=== PATIENT | male | born 1935 | race Caucasian/White ===

== ENCOUNTER 2017-11-09 12:22 | Inpatient (IN) | payer MEDICARE, OTHER ==
[~2017-11-09 12:22] MED LIST: CEFAZOLIN 1 GM INJ; EPHEDrine SULFATE 50 MG/5 ML SYG; ROCURONIUM 50 MG INJ
[2017-11-09] MEDS: hydrALAzine 20 MG INJ IV (13:17)
[2017-11-09 13:34] LABS: ADD MAN DIFF? NO
[2017-11-09 13:36] LABS: WHITE BLOOD COUNT 6.5 10^3/ul (4.8-10.8)
[2017-11-09 13:36] LABS: BASOPHILS % 0.6 % (0.0-2.0); EOSINOPHILS # 0.1 10^3/ul (0.0-0.5); EOSINOPHILS % 1.8 % (0.0-7.0); HEMATOCRIT 42.5 % (42.0-52.0); LYMPHOCYTES # 1.7 10^3/ul (0.8-2.9); LYMPHOCYTES % 26.7 % (15.0-51.0); MEAN CORPUSCULAR HEMOGLOBIN 29.2 pg (29.0-33.0); MEAN CORPUSCULAR HGB CONC 32.9 g/dl (32.0-37.0); MEAN CORPUSCULAR VOLUME 88.7 fl (82.0-101.0); MEAN PLATELET VOLUME 10.7 fl (7.4-10.4); MONOCYTE # 0.6 10^3/ul (0.3-0.9); MONOCYTES % 9.2 % (0.0-11.0); NEUTROPHILS % 61.4 % (39.0-77.0); PLATELET COUNT 191 10^3/UL (140-415); RED BLOOD COUNT 4.79 10^6/ul (4.70-6.10); RED CELL DISTRIBUTION WIDTH 13.4 % (11.5-14.5)
[2017-11-09 13:54] LABS: INR 0.98; PROTIME 13.1 Sec (11.9-14.9)
[2017-11-09 13:55] LABS: PARTIAL THROMBOPLASTIN TIME 25.8 Sec (25.0-35.0)
[2017-11-09 13:56] LABS: ANION GAP 14 (8-16); CARBON DIOXIDE 29 mmol/L (21-31); CHLORIDE 104 mmol/L (97-110); GLUCOSE 102 mg/dl (70-220)
[2017-11-09 14:02] LABS: BLOOD UREA NITROGEN 14 mg/dl (7-20); CALCIUM 9.7 mg/dl (8.4-10.2); CREATININE 0.89 mg/dl (0.61-1.24); POTASSIUM 4.2 mmol/L (3.5-5.1); SODIUM 143 mmol/L (135-144)
[2017-11-09] MEDS ORDERED: HEPARIN 1000 UNITS/ML 10 ML INJ ×2 (15:00→16:17)
[2017-11-09] MEDS ORDERED: GELATIN SIZE 100 SPONGE (15:01)
[2017-11-09] MEDS ORDERED: LIDOCAINE 1% (MPF) 30 ML INJ (15:01)
[2017-11-09] MEDS ORDERED: THROMBIN 5000 UNIT VIAL (15:02)
[2017-11-09] MEDS ORDERED: IOHEXOL 300MG/ML 30 ML BTL (15:02)
[2017-11-09] MEDS ORDERED: ROCURONIUM 50 MG INJ (15:29)
[2017-11-09] MEDS ORDERED: FENTAnyl 50 MCG/ML VIAL (15:29)
[2017-11-09] MEDS ORDERED: ETOMIDATE 20 MG INJ (15:29)
[2017-11-09] MEDS ORDERED: hydrALAzine 20 MG INJ (15:58)
[2017-11-09] MEDS ORDERED: METOPROLOL 5 MG INJ (15:58)
[2017-11-09] MEDS ORDERED: PHENYLephrine (100 MCG/ML) 5ML SYG ×3 (16:06→17:23)
[2017-11-09] MEDS ORDERED: METOCLOPRAMIDE 10 MG INJ (16:18)
[2017-11-09] MEDS ORDERED: DEXAMETHASONE 4 MG/ML 1 ML INJ (16:18)
[2017-11-09] MEDS ORDERED: ONDANSETRON 4 MG INJ (16:18)
[2017-11-09] MEDS: LIDOCAINE 1% (MPF) 30 ML INJ INJ (16:40)
[2017-11-09] MEDS: HEPARIN 10,000 UNITS/ML 1 ML INJ IRR (16:51)
[2017-11-09] MEDS: SODIUM CHLORIDE 0.9% 1L BAG IV (16:53)
[2017-11-09] MEDS ORDERED: SUGAMMADEX SODIUM 200 MG/2 ML VIAL IV (17:31)
[2017-11-09] MEDS ORDERED: ESMOLOL 10 ML (17:46)
[2017-11-09] MEDS: SOD CHLORIDE 0.9% 1,000 ML IV (20:58)
[2017-11-09] MEDS: ATORVASTATIN 10 MG TAB PO (20:58)
[2017-11-09] MEDS: AMLODIPINE 5 MG TAB PO (20:58)
[2017-11-10] MEDS: SOD CHLORIDE 0.9% 1,000 ML IV (02:42)
[2017-11-10 07:16] LABS: ADD MAN DIFF? NO
[2017-11-10 07:19] LABS: WHITE BLOOD COUNT 11.1 10^3/ul (4.8-10.8)
[2017-11-10 07:19] LABS: BASOPHILS % 0.2 % (0.0-2.0); EOSINOPHILS % 0.2 % (0.0-7.0); HEMATOCRIT 36.9 % (42.0-52.0); HEMOGLOBIN 12.4 g/dl (14.0-18.0); LYMPHOCYTES # 1.2 10^3/ul (0.8-2.9); LYMPHOCYTES % 10.7 % (15.0-51.0); MEAN CORPUSCULAR HEMOGLOBIN 29.7 pg (29.0-33.0); MEAN CORPUSCULAR HGB CONC 33.6 g/dl (32.0-37.0); MEAN CORPUSCULAR VOLUME 88.3 fl (82.0-101.0); MEAN PLATELET VOLUME 11.2 fl (7.4-10.4); MONOCYTE # 0.6 10^3/ul (0.3-0.9); MONOCYTES % 5.7 % (0.0-11.0); NEUTROPHIL # 9.2 10^3/ul (1.6-7.5); NEUTROPHILS % 82.7 % (39.0-77.0); PLATELET COUNT 187 10^3/UL (140-415); RED BLOOD COUNT 4.18 10^6/ul (4.70-6.10); RED CELL DISTRIBUTION WIDTH 13.6 % (11.5-14.5)
[2017-11-10 07:45] LABS: ANION GAP 12 (8-16); BLOOD UREA NITROGEN 12 mg/dl (7-20); CALCIUM 9.5 mg/dl (8.4-10.2); CARBON DIOXIDE 27 mmol/L (21-31); CHLORIDE 106 mmol/L (97-110); CREATININE 0.79 mg/dl (0.61-1.24); GLUCOSE 138 mg/dl (70-220); SODIUM 141 mmol/L (135-144)
[2017-11-10] MEDS: HYDROCODONE/APAP (5/325) TAB PO ×2 (07:49→17:07)
[2017-11-10] MEDS: ASPIRIN 81 MG TAB PO (08:57)
[2017-11-10] MEDS: CLOPIDOGREL 75 MG TAB PO (08:57)
[2017-11-10] MEDS: CARvedilol (CR) 10 MG CAP PO (08:57)
[2017-11-10] MEDS: LOSARTAN 50 MG TAB PO (08:57)
[2017-11-10 09:07] LABS: ALANINE AMINOTRANSFERASE 32 IU/L (13-69); ALBUMIN 3.6 g/dl (3.3-4.9); ALKALINE PHOSPHATASE 46 IU/L (42-121); ASPARTATE AMINO TRANSFERASE 25 IU/L (15-46); TOTAL PROTEIN 6.6 g/dl (6.1-8.1)
[2017-11-10 12:02] LABS: ADD UMIC NO; UR ASCORBIC ACID NEGATIVE (NEGATIVE); UR BILIRUBIN (Dip) NEGATIVE (NEGATIVE); UR BLOOD (Dip) NEGATIVE (NEGATIVE); UR CLARITY CLEAR (CLEAR); UR COLOR STRAW (YELLOW); UR GLUCOSE (Dip) NEGATIVE (NEGATIVE); UR KETONES (Dip) NEGATIVE (NEGATIVE); UR LEUKOCYTE ESTERASE (Dip) NEGATIVE Leu/ul (NEGATIVE); UR NITRITE (Dip) NEGATIVE (NEGATIVE); UR SPECIFIC GRAVITY (Dip) 1.008 (1.003-1.030); UR TOTAL PROTEIN (Dip) NEGATIVE (NEGATIVE); UR UROBILINOGEN (Dip) NEGATIVE (NEGATIVE)
[2017-11-10 12:24] LABS: SODIUM,URINE RANDOM 69 mmol/L (30-90)
[2017-11-10 12:24] LABS: CREATININE,URINE RANDOM 47.41 mg/dl (20-370)
[2017-11-10] MEDS: AMLODIPINE 5 MG TAB PO (20:34)
[2017-11-10] MEDS: ATORVASTATIN 10 MG TAB PO (20:35)
[2017-11-11] MEDS: HYDROCODONE/APAP (5/325) TAB PO (01:29)
[2017-11-11 05:56] LABS: ADD MAN DIFF? NO
[2017-11-11 06:08] LABS: WHITE BLOOD COUNT 10.7 10^3/ul (4.8-10.8)
[2017-11-11 06:08] LABS: BASOPHIL # 0.1 10^3/ul (0.0-0.1); BASOPHILS % 0.5 % (0.0-2.0); EOSINOPHILS # 0.2 10^3/ul (0.0-0.5); EOSINOPHILS % 1.4 % (0.0-7.0); HEMATOCRIT 37.7 % (42.0-52.0); HEMOGLOBIN 12.5 g/dl (14.0-18.0); LYMPHOCYTES # 2.2 10^3/ul (0.8-2.9); LYMPHOCYTES % 20.2 % (15.0-51.0); MEAN CORPUSCULAR HEMOGLOBIN 29.5 pg (29.0-33.0); MEAN CORPUSCULAR HGB CONC 33.2 g/dl (32.0-37.0); MEAN CORPUSCULAR VOLUME 88.9 fl (82.0-101.0); MEAN PLATELET VOLUME 11.1 fl (7.4-10.4); MONOCYTE # 1.1 10^3/ul (0.3-0.9); NEUTROPHIL # 7.2 10^3/ul (1.6-7.5); NEUTROPHILS % 67.5 % (39.0-77.0); PLATELET COUNT 175 10^3/UL (140-415); RED BLOOD COUNT 4.24 10^6/ul (4.70-6.10); RED CELL DISTRIBUTION WIDTH 13.6 % (11.5-14.5)
[2017-11-11 06:42] LABS: ALANINE AMINOTRANSFERASE 36 IU/L (13-69); ALBUMIN 3.8 g/dl (3.3-4.9); ALBUMIN/GLOBULIN RATIO 1.31; ALKALINE PHOSPHATASE 47 IU/L (42-121); ANION GAP 11 (8-16); ASPARTATE AMINO TRANSFERASE 25 IU/L (15-46); BLOOD UREA NITROGEN 16 mg/dl (7-20); CALCIUM 9.7 mg/dl (8.4-10.2); CARBON DIOXIDE 28 mmol/L (21-31); CHLORIDE 104 mmol/L (97-110); CREATINE KINASE 230 IU/L (23-200); CREATININE 1.01 mg/dl (0.61-1.24); GLUCOSE 128 mg/dl (70-220); SODIUM 139 mmol/L (135-144); TOTAL PROTEIN 6.7 g/dl (6.1-8.1)
[2017-11-11 06:46] LABS: MAGNESIUM 1.8 mg/dl (1.7-2.5)
[2017-11-11 06:46] LABS: PHOSPHORUS 3.2 mg/dl (2.5-4.9)
[2017-11-11] MEDS: CARvedilol (CR) 10 MG CAP PO (08:12)
[2017-11-11] MEDS: ASPIRIN 81 MG TAB PO (08:27)
[2017-11-11 08:35] LABS: FREE T4 (FREE THYROXINE) 1.17 ng/dl (0.85-1.93)
[2017-11-11] MEDS: LOSARTAN 50 MG TAB PO (11:55)
[2017-11-11] MEDS: CLOPIDOGREL 75 MG TAB PO (11:55)
[2017-11-11 14:22] LABS: CREATININE, RANDOM URINE 57 mg/dL (20-370); MICROALBUMIN <0.2 mg/dL; MICROALBUMIN/CREATININE RATIO NOTE (<30)
== END 2017-11-11 17:00 | disposition home or self-care (01) | DRG 39 ==
LOC: SDS 12:22 → ICU 18:00 → MS3 11-10 23:54 → SDS 18:18 → ICU 18:28
PROC: 03CH0ZZ Extirpation of Matter from Right Common Carotid Artery, Open Approach (ICD-10-PCS; principal; 2017-11-09 14:30)
PROC: 03CM0ZZ Extirpation of Matter from Right External Carotid Artery, Open Approach (ICD-10-PCS; 2017-11-09 14:30)
PROC: 03CK0ZZ Extirpation of Matter from Right Internal Carotid Artery, Open Approach (ICD-10-PCS; 2017-11-09 14:30)
DX: I65.21 Occlusion and stenosis of right carotid artery (principal); E11.9 Type 2 diabetes mellitus without complications; I12.9 Hypertensive chronic kidney disease with stage 1 through stage 4 chronic kidney disease, or unspecified chronic kidney disease; N18.9 Chronic kidney disease, unspecified; I25.2 Old myocardial infarction; E78.5 Hyperlipidemia, unspecified; Z95.5 Presence of coronary angioplasty implant and graft
CPT/HCPCS: 71045; 75665; 80048; 80053; 80076; 81003; 82043; 82550; 83735; 84100; 84155; 84300; 84439; 84443; 85025; 85610; 85730; 86850; 86900; 86901; 86920; 87081; 88304; 88311; 93005